=== PATIENT | female | born 1960 | race American Indian/Alaskan Native ===

== ENCOUNTER 2017-09-06 06:41 | Day surgery (SDC) | payer MEDICAID ==
[2017-09-01 15:33] VITALS: BMI 20.9
[2017-09-06] MEDS ORDERED: Propofol 10 mg/ml Inj (20 ML) ONE ×2 (09:00→09:33)
[2017-09-06] MEDS ORDERED: Sodium Chloride 0.9% 1,000 ML IV SCH (10:00)
[2017-09-06 11:02] VITALS: BP 120/66; PULSE 79; RESP 14; TEMP 98; O2SAT 99
== END 2017-09-06 12:32 | disposition home or self-care (01) ==
LOC: ENDO 06:41
PROVIDERS: ATTEND Internal Medicine
DX: K31.7 Polyp of stomach and duodenum (principal); K29.70 Gastritis, unspecified, without bleeding; K63.89 Other specified diseases of intestine; K44.9 Diaphragmatic hernia without obstruction or gangrene; T18.2XXA Foreign body in stomach, initial encounter; K64.8 Other hemorrhoids; D50.9 Iron deficiency anemia, unspecified; I10 Essential (primary) hypertension; Z80.0 Family history of malignant neoplasm of digestive organs; E11.9 Type 2 diabetes mellitus without complications; Z79.84 Long term (current) use of oral hypoglycemic drugs
CPT/HCPCS: 43239; 45378; 82948; 88305; 88342; J2001; J2704; J3010; J7030; J7040

== ENCOUNTER 2017-11-29 08:29 | Day surgery (SDC) | payer MEDICAID ==
[2017-11-29 09:07] VITALS: BMI 20.9
[2017-11-29] MEDS ORDERED: Propofol 10 mg/ml Inj (20 ML) ONE ×2 (10:11→10:28)
[2017-11-29] MEDS ORDERED: Sodium Chloride 0.9% 1,000 ML IV SCH (11:00)
[2017-11-29 11:05] VITALS: RESP 16; TEMP 98.5
[2017-11-29 11:27] VITALS: O2SAT 98
[2017-11-29 12:24] VITALS: BP 115/63; PULSE 71
== END 2017-11-29 12:16 | disposition home or self-care (01) ==
LOC: ENDO 08:29
PROVIDERS: ATTEND Internal Medicine
DX: D12.3 Benign neoplasm of transverse colon (principal); K63.5 Polyp of colon; K64.8 Other hemorrhoids; D50.9 Iron deficiency anemia, unspecified; I10 Essential (primary) hypertension; E11.9 Type 2 diabetes mellitus without complications; Z79.4 Long term (current) use of insulin
CPT/HCPCS: 45380; 82948; 88305; J2704; J3010; J7040 ×2